=== PATIENT | male | born 1995 | race Caucasian/White ===

== ENCOUNTER 2018-03-05 13:23 | Emergency (ER) | payer SELFPAY ==
[~2018-03-05] VITALS: Ht 165.1 cm; Wt 68.2 kg
[2018-03-05 13:35] VITALS: BP 129/75; TEMP 98.1
[2018-03-05] MEDS ORDERED: KENALOG DENTAL P5 GM DT (13:48)
[2018-03-05] MEDS ORDERED: NORCO 325 MG-51 TAB PO (15:05)
[2018-03-05 15:20] VITALS: PULSE 83
== END 2018-03-05 15:21 | disposition home or self-care (01) ==
LOC: COL.ER 13:23
DX: S50.02XA Contusion of left elbow, initial encounter (principal); V86.59XA Driver of other special all-terrain or other off-road motor vehicle injured in nontraffic accident, initial encounter